=== PATIENT | male | born 1950 | race Two or more races ===

== ENCOUNTER 2016-11-03 12:28 | Outpatient (CLI) | payer OTHER ==
[2013-06-26 10:38] VITALS: O2SAT 98
== END 2016-11-03 12:29 | disposition home or self-care (01) | DRG 561 ==
LOC: CONVCARE 12:28
PROVIDERS: ATTEND Orthopaedic Surgery
DX: T84.030A Mechanical loosening of internal right hip prosthetic joint, initial encounter (principal)
CPT/HCPCS: 36415; 72170; 73502; 85651

== ENCOUNTER 2017-04-07 20:43 | Emergency (ER) | payer MEDICARE, OTHER ==
[2017-04-07 20:58] VITALS: RESP 16; TEMP 97.8
[2017-04-07 21:36] LABS: BASOPHILS % (AUTO) 1 % (0-3); EOSINOPHILS % (AUTO) 1 % (0-9); HEMATOCRIT 42 % (39-53); MEAN CORPUSCULAR HGB CONC 33.4 gm/dl (32.0-36.0); MEAN CORPUSCULAR VOLUME 92 fL (80-100); MONOCYTES % (AUTO) 6.8 % (0-12); NEUTROPHILS % (AUTO) 69.7 % (37-80)
[2017-04-07 21:50] LABS: CALCIUM 8.5 mg/dl (8.5-10.1); POTASSIUM 4.1 mMol/L (3.5-5.1)
[2017-04-07 23:17] VITALS: BP 142/89; PULSE 57; O2SAT 98
== END 2017-04-07 23:10 | disposition home or self-care (01) | DRG 149 ==
LOC: ED 20:43
DX: R42 Dizziness and giddiness (principal)
CPT/HCPCS: 36415; 70450; 80048; 85025; 93005; 99285